=== PATIENT | female | born 1985 | race Hispanic/Latino ===

== ENCOUNTER 2018-05-30 19:18 | Emergency (ER) | payer MEDICAID, OTHER ==
[2018-05-30] MEDS ORDERED: ZOFRAN ODT PO ONE (20:10)
[2018-05-30] MEDS ORDERED: ZOFRAN ODT ONE ×2 (20:15→20:17)
[2018-05-30] MEDS ORDERED: ASPIRIN PO ONE (20:36)
[2018-05-30 20:37] VITALS: BP 117/67
[2018-05-30 21:02] LABS: Basophils % (Auto) 0.5 % (0.0-1.8); Eosinophils # (Auto) 0.3 K/mm3 (0.0-0.4); Eosinophils % (Auto) 3.5 % (0.0-4.3); Lymphocytes # (Auto) 0.7 K/mm3 (1.2-5.4); Lymphocytes % (Auto) 7.3 % (13.4-35.0); Mean Corpuscular HGB Conc 37 % (30-34); Mean Corpuscular Hemoglobin 32 pg (28-32); Mean Corpuscular Volume 88 fl (79-97); Monocytes # (Auto) 0.4 K/mm3 (0.0-0.8); Monocytes % (Auto) 4.5 % (0.0-7.3); Platelet Count 296 K/mm3 (140-440); Red Cell Distribution Width 14.3 % (13.2-15.2)
[2018-05-30 21:14] LABS: Hematocrit 41.5 % (30.3-42.9); Hemoglobin 15.1 gm/dl (10.1-14.3)
[2018-05-30 21:18] LABS: BUN/Creatinine Ratio 18; Blood Urea Nitrogen 14 mg/dL (7-17); Calcium 8.9 mg/dL (8.4-10.2); Hemolysis Index 1
== END 2018-05-30 22:00 | disposition left against medical advice (07) ==
LOC: ED 19:18
DX: M25.511 Pain in right shoulder (principal); R11.10 Vomiting, unspecified; R07.89 Other chest pain; Z53.21 Procedure and treatment not carried out due to patient leaving prior to being seen by health care provider
CPT/HCPCS: 36415; 80048; 84484; 85025; 93005; 93010; Q0162